=== PATIENT | male | born 1970 | race African-American/Black ===

== ENCOUNTER 2022-06-06 10:31 | Emergency (ER) | payer OTHER ==
[2022-06-06 10:59] VITALS: BP 140/76; PULSE 104; RESP 18; TEMP 98.3; BMI 31.3
[2022-06-06] MEDS ORDERED: valACYclovir HCL 1000 MG TABLET PO ONE (12:55)
[2022-06-06] MEDS ORDERED: SODIUM CHLORIDE 1,000 ML IV STA ×3 (12:56→14:18)
[2022-06-06] MEDS ORDERED: valACYclovir HCL 500 MG TABLET (FP) ONE (13:09)
[2022-06-06 13:38] LABS: EOS % 3.1 % (0-4.5); HEMATOCRIT 38.3 % (35.4-49); LYMPH % 36.7 % (8-40); MCH 32.5 pg (25.7-33.7); MEAN CELL VOLUME 95.6 fl (80-96); MEAN PLT VOLUME 9.7 fl (7.5-11.1); MONO % 11.4 % (3.8-10.2); NEUT % 47.8 % (42.8-82.8); PLATELET COUNT 222 10^3/uL (134-434); WHITE BLOOD COUNT 4.7 K/mm3 (4.0-10.0)
[2022-06-06 13:46] LABS: INR 0.98 (0.83-1.09); PROTHROMBIN TIME (PATIENT) 11.4 SEC (9.7-13.0)
[2022-06-06 13:48] LABS: ACTIVATED PTT 29.9 SECONDS (25.2-36.5)
[2022-06-06 14:12] LABS: CHLORIDE 104 mmol/L (98-107); SODIUM 136 mmol/L (136-145)
[2022-06-06 14:13] LABS: CALCIUM 9.3 mg/dL (8.5-10.1)
[2022-06-06 14:14] LABS: ALBUMIN 3.6 g/dl (3.4-5.0); ANION GAP 5 MMOL/L (8-16); CO2 26 mmol/L (21-32)
[2022-06-06 14:17] LABS: CREATININE 1.7 mg/dL (0.55-1.3); SGOT/AST 41 U/L (15-37)
[2022-06-06 14:18] LABS: TOT PROT 7.4 g/dl (6.4-8.2)
[2022-06-06 14:19] LABS: BILIRUBIN,TOTAL 0.1 mg/dL (0.2-1)
[2022-06-06 14:20] LABS: ALK PHOS 99 U/L (45-117)
[2022-06-06 14:27] LABS: SGPT/ALT 99 U/L (13-61)
[2022-06-06 14:52] LABS: URINE APPEARANCE CLEAR; URINE BILIRUBIN NEGATIVE (NEGATIVE); URINE COLOR YELLOW; URINE GLUCOSE (UA) 3+ (NEGATIVE); URINE KETONE NEGATIVE (NEGATIVE); URINE LEUK ESTERASE NEGATIVE (NEGATIVE); URINE NITRITE NEGATIVE (NEGATIVE); URINE PROTEIN NEGATIVE (NEGATIVE); URINE UROBILINOGEN 0.2 mg/dL (0.2-1.0)
[2022-06-06] MEDS ORDERED: INSULIN REGULAR HUMAN 100 UNITS/ML *VIAL IVPUSH ONE (15:32)
[2022-06-06 15:33] LABS: GLUCOSE,RANDOM 648 mg/dL (74-106)
[2022-06-06] MEDS ORDERED: INSULIN REGULAR HUMAN 100 UNITS/ML *VIAL ONE (15:44)
== END 2022-06-06 17:20 | disposition home or self-care (01) ==
LOC: JER 10:31 → JERFT 10:31 → JER 17:20
PROC: 3E013VG Introduction of Insulin into Subcutaneous Tissue, Percutaneous Approach (ICD-10-PCS; principal; 2022-06-06)
PROC: 3E0337Z Introduction of Electrolytic and Water Balance Substance into Peripheral Vein, Percutaneous Approach (ICD-10-PCS; 2022-06-06)
PROC: 3E0337Z Introduction of Electrolytic and Water Balance Substance into Peripheral Vein, Percutaneous Approach (ICD-10-PCS; 2022-06-06)
DX: E11.628 Type 2 diabetes mellitus with other skin complications (principal); B02.9 Zoster without complications; R82.998 Other abnormal findings in urine; R35.89 Other polyuria; Z79.84 Long term (current) use of oral hypoglycemic drugs
CPT/HCPCS: 36415; 80053; 81003; 82010; 82962; 85025; 85610; 85730; 87086; 93005; 93010; 99284-25

== ENCOUNTER 2023-07-07 22:48 | Emergency (ER) | payer OTHER ==
[2023-07-07 22:55] VITALS: BMI 29.7
[2023-07-07] MEDS ORDERED: KETOROLAC TROMETHAMINE 30 MG/1 ML VIAL ONE (23:57)
[2023-07-08] MEDS: KETOROLAC TROMETHAMINE 30 MG/1 ML VIAL IM ONE (00:12)
[2023-07-08] MEDS ORDERED: CYCLOBENZAPRINE HCL 10 MG TABLET (FP) ONE (00:13)
[2023-07-08] MEDS ORDERED: LIDOCAINE 4% PATCH TP ONE (00:14)
[2023-07-08] MEDS: LIDOCAINE 4% PATCH TP ONE (00:16)
[2023-07-08] MEDS: CYCLOBENZAPRINE HCL 10 MG TABLET (FP) PO ONE (00:17)
[2023-07-08 01:17] VITALS: TEMP 98.3
[2023-07-08 01:55] LABS: HEMATOCRIT 37.5 % (35.4-49); HEMOGLOBIN 12.5 GM/dL (11.7-16.9); MCH 30.6 pg (25.7-33.7); MCHC 33.4 g/dl (32.0-35.9); MEAN CELL VOLUME 91.6 fl (80-96); PLATELET COUNT 181 10^3/uL (134-434); RDW 16.5 % (11.9-15.9); WHITE BLOOD COUNT 4.7 K/mm3 (4.0-10.0)
[2023-07-08 02:12] LABS: POTASSIUM 4.1 mmol/L (3.5-5.1)
[2023-07-08 02:14] LABS: CALCIUM 9.1 mg/dL (8.5-10.1)
[2023-07-08 02:15] LABS: ALBUMIN 3.4 g/dl (3.4-5.0); BLOOD UREA NITROGEN 26.5 mg/dL (7-18)
[2023-07-08 02:18] LABS: CREATININE 1.3 mg/dL (0.55-1.3)
[2023-07-08 02:19] LABS: BILIRUBIN,TOTAL 0.2 mg/dL (0.2-1); TOT PROT 6.4 g/dl (6.4-8.2)
[2023-07-08 03:37] VITALS: BP 140/77; PULSE 76; RESP 15
[2023-07-08] MEDS ORDERED: LIDOCAINE PATCH REMOVAL MC SCH (22:00)
== END 2023-07-08 03:39 | disposition home or self-care (01) ==
LOC: JER 22:48
PROC: 3E023GC Introduction of Other Therapeutic Substance into Muscle, Percutaneous Approach (ICD-10-PCS; principal; 2023-07-07)
DX: M54.6 Pain in thoracic spine (principal); M54.50 Low back pain, unspecified; W10.8XXA Fall (on) (from) other stairs and steps, initial encounter
CPT/HCPCS: 36415; 72128-TC; 72131-TC; 72192-TC; 80053; 82010; 85027; 99284-25

== ENCOUNTER 2023-11-20 12:13 | Emergency (ER) | payer OTHER ==
[2023-11-20 12:18] VITALS: BP 137/90; PULSE 99; RESP 18; TEMP 97.9; BMI 30.5
[2023-11-20] MEDS ORDERED: diazePAM 5 MG TABLET ONE (13:08)
[2023-11-20] MEDS ORDERED: KETOROLAC TROMETHAMINE 15 MG/ML VIAL ONE (13:08)
[2023-11-20] MEDS: diazePAM 5 MG TABLET PO ONE (13:11)
[2023-11-20] MEDS ORDERED: LIDOCAINE 4% PATCH TP ONE (13:17)
[2023-11-20] MEDS: KETOROLAC TROMETHAMINE 15 MG/ML VIAL IM ONE (13:20)
[2023-11-20] MEDS: LIDOCAINE 4% PATCH TP ONE (13:20)
[2023-11-20] MEDS: LIDOCAINE 5% TOPICAL PATCH TP ONE (14:00)
[2023-11-20] MEDS ORDERED: LIDOCAINE PATCH REMOVAL MC SCH ×2 (22:00)
== END 2023-11-20 15:30 | disposition home or self-care (01) ==
LOC: JERFT 12:13
PROC: 3E0233Z Introduction of Anti-inflammatory into Muscle, Percutaneous Approach (ICD-10-PCS; principal; 2023-11-20)
DX: M54.42 Lumbago with sciatica, left side (principal); R20.0 Anesthesia of skin; M79.89 Other specified soft tissue disorders
CPT/HCPCS: 93971-TC; 99284-25